=== PATIENT | female | born 1950 ===

== ENCOUNTER 2020-11-06 16:14 | Outpatient (CLI) | payer BC ==
--- NOTE | 2020-11-06 14:48 | XRAY Report ---
PROCEDURE: Knee 2 View BILAT INDICATIONS: BILATERAL OSTEOARTHRITIS TECHNIQUE: 2 views of the bilateral knee(s) were acquired. COMPARISON: None. FINDINGS: Bones: No fractures or dislocations. Moderate to severe bilateral tricompartmental osteoarthritis i s seen more prominent in bilateral patellofemoral compartment. No suspicious bony lesions. Soft tissues: No joint effusion. Small oval calcifications are noted in posterior aspect of right kn ee joint and the superior aspect of left patellofemoral compartment suggestive of loose bodies. IMPRESSION: Moderate to severe bilateral tricompartmental osteoarthritis more prominent in bilateral patellofemoral compartments. Possible intra-articular loose bodies as above. No fracture or dislocat ion. Reviewed by: Max Espinosa MD on 11/06/2020 2:46 PM PDT Approved by: Max Espinosa MD on 11/06/2020 2:46 PM PDT Station ID: [id number]
== END 2020-11-06 16:15 ==
LOC: DI.N 16:14
PROVIDERS: ATTEND Physician Assistant Medical
DX: M17.0 Bilateral primary osteoarthritis of knee (principal)

== ENCOUNTER 2020-12-19 11:00 | Outpatient (CLI) | payer BC ==
--- NOTE | 2020-12-19 17:15 | XRAY Report ---
PROCEDURE: Knee 4 View LT INDICATIONS: OSTEOARTHRITIS OF KNEE TECHNIQUE: 4 views of the left knee(s) were acquired. COMPARISON: None. FINDINGS: Bones: No fractures or dislocations. No suspicious bony lesions. Severe left knee medial compartmen t osteoarthritis. [id number] left knee lateral and patellofemoral compartment osteophytosis. Soft tissues: No joint effusion. No suspicious soft tissue calcifications. IMPRESSION: Left knee tricompartmental osteoarthritis as described above. Reviewed by: Megan Sotelo MD, PhD on 12/19/2020 5:13 PM PDT Approved by: Megan Sotelo MD, PhD on 12/19/2020 5:13 PM PDT Station ID: [id number]
== END 2020-12-19 11:01 | disposition home or self-care (01) ==
LOC: DI.N 11:00
PROVIDERS: ATTEND Physician Assistant
DX: M17.12 Unilateral primary osteoarthritis, left knee (principal)

== ENCOUNTER 2021-02-17 15:14 | Outpatient (CLI) | payer BC ==
--- NOTE | 2021-02-17 14:38 | XRAY Report ---
PROCEDURE: Ankle 3 View LT INDICATIONS: LEFT ANKLE PAIN TECHNIQUE: AP views of both ankles and water and lateral views of the left ankle performed. COMPARISON: None FINDINGS: Bones: No fractures or dislocations. Ankle mortise is normally aligned. No suspicious bony lesions . The calcaneus demonstrate plantar and Achilles spurs. Soft tissues: No tibiotalar joint effusion. Achilles tendon appears normal. IMPRESSION: 1. No acute or significant abnormality of the left ankle. No significant degenerative changes. 2. Calcaneal spurs. Reviewed by: Barrera Hoyt on 02/17/2021 1:36 PM [facility] Approved by: Barrera Hoyt on 02/17/2021 1:36 PM [facility] Station ID: [id number]
== END 2021-02-17 23:59 | disposition home or self-care (01) ==
LOC: DI.N 15:14
PROVIDERS: ATTEND Physician Assistant
DX: M77.32 Calcaneal spur, left foot (principal); M77.31 Calcaneal spur, right foot

== ENCOUNTER 2023-06-02 10:36 | Outpatient (CLI) | payer MEDICARE ==
--- NOTE | 2023-06-02 19:45 | XRAY Report ---
PROCEDURE: Knee 4+V BL INDICATIONS: OSTEOARTHRITIS OF KNEE TECHNIQUE: 3 views of the knee was obtained. COMPARISON: None FINDINGS: Bones: No fractures or dislocations. No suspicious bony lesions. Moderate bilateral medial compartm ental joint space narrowing with marginal osteophyte. Bilateral patellofemoral joint space narrowing with marginal osteophyte present as well. There is a 2.2 cm suprapatellar calcified loose body on the left. Soft tissues: No knee joint effusion. No suspicious soft tissue calcifications or masses. IMPRESSION: Moderate severe bilateral osteoarthritis with stable left-sided suprapatellar loose body Reviewed by: Reilly Rivas MD on 06/02/2023 6:44 PM [facility] Approved by: Reilly Rivas MD on 06/02/2023 6:44 PM [facility] Station ID: [id number]
== END 2023-06-02 10:37 | disposition home or self-care (01) ==
LOC: DI 10:36
PROVIDERS: ATTEND Physician Assistant Surgical
DX: M17.0 Bilateral primary osteoarthritis of knee (principal); M23.42 Loose body in knee, left knee